=== PATIENT | female | born 1965 | race African-American/Black ===

== ENCOUNTER 2017-01-02 16:36 | Emergency (ER) | payer OTHER ==
[~2017-01-02] VITALS: Ht 162.6 cm; Wt 68.0 kg
[2017-01-02] MEDS ORDERED: HYDR25TA PO (17:46)
[2017-01-02] MEDS ORDERED: IBUP200T77 PO (17:51)
--- NOTE | 2017-01-02 17:51 | PHYS DOC ---
Past Medical History Past Medical History: Anxiety Past Surgical History: Appendectomy, Other Additional Past Surgical Histo: fibroid tumor removal Alcohol Use: None Drug Use: None Adult General Chief Complaint Chief Complaint: ANXIETY/PANIC ATTACK HPI HPI 51-year-old female presenting to the emergency department with intermittent headaches and been present for greater than a month. She reports having a headache that is throbbing moderate intermittent and without alleviating factors. Currently her headache is improving. She has been seen multiple times including previously another emergency department in [place] 2 weeks ago and subsequently discharged. She has anxiety and feels mildly anxious as well. Review of systems is negative for chest pain shortness of breath abdominal pain nausea vomiting fevers or chills. She denies neck stiffness meningismus confusion cyanosis or lethargy. All other review of systems is negative unless otherwise noted in history of present illness. Review of Systems Review of Systems SEE ABOVE. Allergies Allergies Allergies Coded Allergies Type Severity Reaction Last Updated Verified No Known Drug Allergies 01/02/17 No Physical Exam Physical Exam Constitutional: Well developed, well nourished, no acute distress, non-toxic appearance. HENT: Normocephalic, atraumatic, bilateral external ears normal, oropharynx moist, no oral exudates, nose normal. [] Eyes: PERRLA, EOMI, conjunctiva normal, no discharge. [] Neck: Normal range of motion, no tenderness, supple, no stridor. Cardiovascular:Heart rate regular rhythm, no murmur [] Lungs & Thorax: Bilateral breath sounds clear to auscultation Abdomen: Bowel sounds normal, soft, no tenderness, no masses, no pulsatile masses. [] Skin: Warm, dry, no erythema, no rash. [] Back: No tenderness, no CVA tenderness. Extremities: No tenderness, no cyanosis, no clubbing, ROM intact, no edema. Neurologic: Alert and oriented X 3, normal motor function, normal sensory function, no focal deficits noted. [] Psychologic: Affect normal, judgement normal, mood normal. [] Current Patient Data Vital Signs Vital Signs Date Time Temp Pulse Resp B/P Pulse Ox O2 Delivery O2 Flow Rate FiO2 01/02/17 16:57 98.1 80 16 130/76 97 Room Air 98.1 EKG EKG [] Radiology/Procedures Radiology/Procedures [] Course & Med Decision Making Course & Med Decision Making Pertinent Labs and Imaging studies reviewed. (See chart for details) [] 51-year-old female presenting with intermittent mild headaches and lightheadedness when she stands up. She denies being . Vital signs shows she is afebrile with a normal heart rate. Normal respiratory rate. Normal oxygenation. Normal blood pressure. Physical exam was unremarkable. Patient appeared mildly anxious in the examination room. Likely tension headaches. I recommend the patient follow up with her primary care doctor over the next day or 2 or further evaluation and outpatient workup and care. I prescribed the patient ibuprofen for her headaches and hydroxyzine as needed for anxiety. Dragon Disclaimer Dragon Disclaimer This electronic medical record was generated, in whole or in part, using a voice recognition dictation system. Departure Departure Impression: Primary Impression: Feeling anxious Disposition: 01 HOME, SELF-CARE Condition: STABLE Referrals: LAKEISHA TAMAYO MD (PCP) Patient Instructions: Anxiety and Panic Attacks, [id number] Additional Instructions: Thank you for allowing us to participate in your care today. Followup with your primary care physician in 3 days if your symptoms do not improve. If you do not have a primary care provider you can ask for a list of our primary care providers. Return to the emergency department you have any new or concerning findings. This should be evaluated by the primary care physician and any necessary consulting services for continued management within a few days after discharge. Return to emergency room if you have any new or concerning symptoms including but not limited to fever, chills, nausea, vomiting, intractable pain, any new rashes, chest pain, shortness of air, uncontrolled bleeding, difficulty breathing, and/or vision loss. You may have been prescribed medication that can change in your level of thinking and ability to operate machinery. These medications include hydrocodone and Ativan. Also, Benadryl has been known to do this as well. Be sure to check with your pharmacist and ask if the medications you've prescribed can affect your level of consciousness. I recommend not operating heavy machinery or driving while on medication such as these. Scripts Ibuprofen 200 Mg [id number] Mg PO PRN Q6HRS PRN INFLAMMATION #15 TAB Prov:ALFREDITO GARCIA MD 01/02/17 Hydroxyzine Hcl 25 Mg Tablet1 Tab PO PRN QHS PRN ANXIETY / AGITATION #20 TAB Prov:ALFREDITO GARCIA MD 01/02/17 ALFREDITO GARCIA MD Jan 02, 2017 17:51
[2017-01-02 18:04] VITALS: BP 147/92
== END 2017-01-02 18:15 | disposition home or self-care (01) ==
LOC: ER 16:36
DX: F41.9 Anxiety disorder, unspecified (principal)
CPT/HCPCS: 99284